=== PATIENT | male | born 1945 | race Caucasian/White ===

== ENCOUNTER → 2019-09-10 10:30 | Outpatient (CLI) | payer MEDICARE, SELFPAY ==
[2019-09-11 14:15] LABS: Covid-19 Nasal PCR Sendout Lex NOT DETECTED
== END ==
PROVIDERS: Visit Provider Internal Medicine Gastroenterology
DX: Z03.818 Encounter for observation for suspected exposure to other biological agents ruled out (principal)
CPT/HCPCS: U0004

== ENCOUNTER 2019-09-12 10:59 | Day surgery (SDC) | payer MEDICARE, SELFPAY ==
--- NOTE | 2019-09-09 10:07 | SUR.PREOP ---
09/09/2019 @ 1005--PHONE CALL MADE TO PATIENT. PATIENT UNDERSTANDS THAT LAB WORK AND COVID TESTING NEEDS TO BE COMPLETED @ 1000 ON 09/10/2019. PATIENT UNDERSTANDS IF LAB WORK AND COVID-19 TESTS ARE NOT COMPLETED BY 12PM ON THAT DATE, THE SURGERY SCHEDULED WILL BE CANCELLED AND RESCHEDULED FOR ANOTHER TIME.
[2019-09-09 13:04] VITALS: BMI 21.7
[2019-09-12 11:26] VITALS: BP 160/81; PULSE 82; RESP 18; TEMP 36.6; O2SAT 98
--- NOTE | 2019-09-12 13:03 | FL_ITS ---
PROCEDURE: FL ERCP CLINICAL INDICATION: cbd stone Biliary colic COMPARISON: No exams were available for comparison FINDINGS: Fluoroscopy time: 2 minutes and 27 seconds. Select images are submitted from the ERCP showing the scope in place. One image shows contrast into the common bile duct with several small filling defects the largest at approximately 8 mm consistent with common duct stones. IMPRESSION: Choledocholithiasis Dictated by: Daniel Grlulon MD 09/15/2019 11:56 Electronically signed by Daniel Grullon MD in [place] 09/15/2019 11:56
[2019-09-12 13:04] VITALS: O2SAT 97
--- NOTE | 2019-09-12 13:28 | HMH.PROC ---
[facility] Procedure Note Procedure Note:: ERCP procedure Report: Endoscopic retrograde cholangiopancreatography with balloon extraction Endoscopist: Larry Warner II, MD Referring Physician: Wade Jacques MD Date of Procedure: September 12, 2019 Equipment: Olympus 180 side viewing endoscope duodenoscope Sedation: MAC sedation Indication: Mr. Jacques is a 73-year-old gentleman with recurrent choledocholithiasis. In the past, he has had bouts of cholangitis with partial biliary obstruction. We had been doing ERCP with clearance and decompression of the biliary system every 4 months. His last ERCP was March 12, 2019. He reports no abdominal pain, jaundice, fever or chills. He reports no dark in urine or acholic stools. I believe this is his 17th or 18th ERCP and he has recurrent CBD stones each time. Procedure: Prior to the procedure, a history and physical exam was performed, and patient's medications and allergies were reviewed. The risks, benefits and alternatives of the sedation and procedure were discussed with the patient. All questions were answered and informed consent was obtained. The patient was brought to the fluoroscopic radiology room. Patient identification and proposed procedure were verified by the physician and the nurse. The patient was placed in a swimmer's position between left lateral decubitus and prone position and the scope was passed under direct vision. Throughout the procedure, the patient's blood pressure, pulse, and oxygen saturations were monitored continuously. The ERCP was accomplished without difficulty. The patient tolerated the procedure well. Findings: The side-viewing duodenal scope was passed directly into the upper esophagus and advanced to the second portion of the duodenum. There was a widely patent sphincterotomy and the ampulla was generous but normal in appearance and unchanged. The CBD and biliary system were selectively cannulated with a guidewire. A cholangiogram was performed and there was evidence of new filling defects consistent with biliary stones. Next, the 9 to 12 mm balloon was placed into the biliary system. The CBD diameter was approximately maximally 14 mm. 3 balloon sweeps yielded 3 stones and sludge. After complete clearance, a repeat cholangiogram did show a single solid filling defect in the intrahepatic biliary system. This was within a branch of the right intrahepatic biliary system and the guidewire was placed above the stone. The balloon was then navigated above the filling defect and swept through the biliary system with the passage of a 10 x 12 mm stone (yellow gallstone). After this sweep there was complete clearance and resolution with decompression of the biliary system. The procedure was ended at that point. Impression: 1. Recurrent choledocholithiasis status post biliary clearance Plan: I will plan repeat ERCP with clearance of the biliary system again in 4 to 6 months. I will discuss the findings with patient and family.
[2019-09-12 13:33] VITALS: BP 118/71; PULSE 70; RESP 18; TEMP 36.1; O2SAT 94
[2019-09-12 13:43] VITALS: BP 135/70; PULSE 65; RESP 18; TEMP 36.1; O2SAT 94
[2019-09-12 13:53] VITALS: BP 141/75; PULSE 65; RESP 18; TEMP 36.1; O2SAT 95
[2019-09-12 14:08] VITALS: BP 141/76; PULSE 61; RESP 18; TEMP 36.1; O2SAT 95
== END 2019-09-12 14:08 | disposition home or self-care (01) ==
LOC: OUTP 11:05
PROVIDERS: PCP Internal Medicine; Visit Provider Internal Medicine Gastroenterology
DX: K80.51 Calculus of bile duct without cholangitis or cholecystitis with obstruction (principal); I10 Essential (primary) hypertension; E78.5 Hyperlipidemia, unspecified; Z79.899 Other long term (current) drug therapy
CPT/HCPCS: 43264; 74330; Q9967

== ENCOUNTER → 2020-03-06 10:36 | Outpatient (CLI) | payer MEDICARE, SELFPAY ==
[2020-03-06 12:54] LABS: Coronavirus 19 IgG Antibody Negative (Negative); Coronavirus 19 IgM Antibody Negative (Negative)
== END ==
PROVIDERS: Visit Provider Internal Medicine Gastroenterology
DX: Z01.818 Encounter for other preprocedural examination (principal)
CPT/HCPCS: 36415; 86328

== ENCOUNTER 2020-03-08 13:34 | Day surgery (SDC) | payer MEDICARE, SELFPAY ==
[2020-03-02 13:42] VITALS: BMI 22.4
[2020-03-08] VITALS (9 sets, daily range): BP systolic 108–137; BP diastolic 61–90; PULSE 61–80; RESP 18; TEMP 36.4–37; O2SAT 94–98
--- NOTE | 2020-03-08 14:39 | FL_ITS ---
PROCEDURE: FL ERCP CLINICAL INDICATION: ercp Choledocholithiasis COMPARISON: No exams were available for comparison FINDINGS: Select images are submitted showing prior cholecystectomy. Dilated common bile duct at approximately 12 mm with a common duct stone present measuring at least 10 mm. IMPRESSION: Choledocholithiasis with dilated common bile duct Dictated by: Daniel Grullon MD 03/11/2020 18:23 Daniel Grullon MD in [place] 03/11/2020 18:23
--- NOTE | 2020-03-08 15:25 | HMH.PROC ---
[facility] Procedure Note Procedure Note:: ERCP procedure Report: Endoscopic retrograde cholangiopancreatography with TTS balloon dilation (sphincteroplasty) and balloon extraction of gallstones (choledocholithiasis) Endoscopist: Larry Warner II, MD Referring Physician: Wade Jacques MD Date of Procedure: March 08, 2020 Equipment: Olympus 180 side viewing endoscope duodenoscope Sedation: MAC sedation Indication: Mr. Jacques is a 74-year-old gentleman with recurrent choledocholithiasis/common bile duct stones. In the past he has had intermittent bouts of biliary cholangitis and partial biliary obstruction. The patient has had multiple ERCPs (nearly 20) with interval development of new biliary stones. His last ERCP with biliary clearance was 09/12/2019. He has remained asymptomatic with no right upper quadrant abdominal pain, nausea or vomiting. Procedure: Prior to the procedure, a history and physical exam was performed, and patient's medications and allergies were reviewed. The risks, benefits and alternatives of the sedation and procedure were discussed with the patient. All questions were answered and informed consent was obtained. The patient was brought to the fluoroscopic radiology room. Patient identification and proposed procedure were verified by the physician and the nurse. The patient was placed in a swimmer's position between left lateral decubitus and prone position and the scope was passed under direct vision. Throughout the procedure, the patient's blood pressure, pulse, and oxygen saturations were monitored continuously. The ERCP was accomplished without difficulty. The patient tolerated the procedure well. Findings: The side-viewing duodenal scope was passed directly into the upper esophagus and advanced to the third portion of the duodenum. There was evidence of very short segment Ashton's esophagus with small hiatal hernia. There was mild reactive gastropathy of the antrum of the stomach. The duodenum was well visualized to the second portion and there was a third portion duodenal diverticulum. The ampulla was widely patent and the common bile duct was selectively cannulated. The cholangiogram did show a 10 to 11 mm common bile duct with filling defects and sludge and stony debris within the biliary system. A biliary dilating balloon/TTS hydrostatic balloon was utilized to dilate the ampulla (sphincteroplasty) to 10 mm. Next, the 10 to 12 mm sweeping balloon was utilized to sweep the biliary system multiple times with the extraction of some soft, semisolid and solid yellow stony debris/choledocholithiasis. After complete clearance of the biliary system the procedure was ended. Impression: 1. Recurrent choledocholithiasis status post sphincteroplasty and balloon clearance Plan: I will plan to repeat ERCP again in 6 months due to his ongoing recurrence of biliary stones (lithogenic bile).
--- NOTE | 2020-03-08 16:42 | P.PN_ITS ---
[facility] Anesthesia Checklist - Structural Data Admitted From: Home Planned Operative Procedure/s: ercp Consent for Planned Operative Procedure(s) Verified: Yes - Airway Assessment C-Spine Mobility Assessed: Yes TMJ Mobility Assessed: Yes Dentition: Good Dentition - Neurological Assessment Level of Consciousness: Awake, Alert, Appropriate - Anesthesia Plan Anesthesia Risk discussed: Yes Anesthesia Plan: Verified ASA Class: III Anesthesia Type: MAC [facility] History I have reviewed the patient's past medical history: Yes Medical History: Reports:: Cancer (prostate), Hyperlipidemia, Hypertension, Peripheral Artery Disease Denies:: Diabetes Mellitus Type 1, Diabetes Mellitus Type 2, Internal Pacemaker, MRSA, Seizures *Have you ever received a pneumonia vaccine?: No *Have you received a flu vaccine this season?: No Anesthesia experience/problems:: none Laterality Cases: Bilateral: Tonsillectomy Other Surgeries: Yes: Coronary Stent. No: Pacemaker Amputation: No Fractures: No - *Social History Last grade of school completed: Some college Smoking Status: Current every day smoker Tobacco Type: cigarettes # Packs/Day (cigarettes): 1 Alcohol Intake: current Alcohol Intake Frequency:: a few times a month Substance Use Type: denies use *Occupational Status:: retired Housing: house Household Members: spouse *Travel in the last 8 weeks: None Family Hx:: Cancer
== END 2020-03-08 16:30 | disposition home or self-care (01) ==
LOC: OUTP 13:37
PROVIDERS: PCP Internal Medicine; Visit Provider Internal Medicine Gastroenterology
PROC: (CPT 43264; principal; 2020-03-08 14:30)
DX: K80.50 Calculus of bile duct without cholangitis or cholecystitis without obstruction (principal); Z98.890 Other specified postprocedural states
CPT/HCPCS: 43264; 74330; 76000; C1726; Q9967

== ENCOUNTER → 2020-10-06 13:45 | Outpatient (CLI) | payer MEDICARE, SELFPAY | PROVIDERS: Visit Provider Internal Medicine Gastroenterology | DX: Z01.812 Encounter for preprocedural laboratory examination (principal); Z20.822 Contact with and (suspected) exposure to COVID-19 | CPT/HCPCS: U0003 ==

== ENCOUNTER 2020-10-08 10:53 | Day surgery (SDC) | payer MEDICARE, SELFPAY ==
[2020-09-30 13:10] VITALS: BMI 20.9
[2020-10-08 11:53] VITALS: BP 139/82; PULSE 77; RESP 18; TEMP 36.8; O2SAT 97
--- NOTE | 2020-10-08 13:00 | FL_ITS ---
PROCEDURE: FL ERCP CLINICAL INDICATION: Right Upper Quadrant Pain COMPARISON: No exams were available for comparison FINDINGS: Fluoroscopy time: 2 minutes and 7 seconds Single image submitted with contrast injection shows endoscope in place with cannulation of the common bile duct. The common bile duct is dilated at approximately 12 mm with multiple stones. IMPRESSION: Choledocholithiasis Dictated by: Daniel Grullon MD 10/08/2020 20:06 Daniel Grullon MD in [place] 10/08/2020 20:06
--- NOTE | 2020-10-08 13:19 | HMH.PROC ---
[facility] Procedure Note Procedure Note:: ERCP procedure Report: Endoscopic retrograde cholangiopancreatography with balloon extraction sweep (removal of biliary stones) and cold biopsies Endoscopist: Larry Warner II, MD Referring Physician: Wade Jacques MD ([facility]) Date of Procedure: October 08, 2020 Equipment: Olympus 180 side viewing endoscope duodenoscope Sedation: MAC sedation Indication: Mr. Jacques is a 74-year-old gentleman with recurrent choledocholithiasis/CBD stones. He has had intermittent biliary cholangitis and partial biliary obstruction. He does have surveillance ERCP every 4 to 6 months. His last ERCP was 6 months ago (February 2020) and he did have recurrent sludge and soft biliary stones that were removed. The patient reports no abdominal complaints. Procedure: Prior to the procedure, a history and physical exam was performed, and patient's medications and allergies were reviewed. The risks, benefits and alternatives of the sedation and procedure were discussed with the patient. All questions were answered and informed consent was obtained. The patient was brought to the fluoroscopic radiology room. Patient identification and proposed procedure were verified by the physician and the nurse. The patient was placed in a swimmer's position between left lateral decubitus and prone position and the scope was passed under direct vision. Throughout the procedure, the patient's blood pressure, pulse, and oxygen saturations were monitored continuously. The ERCP was accomplished without difficulty. The patient tolerated the procedure well. Findings: The side-viewing duodenal scope was passed directly into the upper esophagus and advanced to the second portion of the duodenum. There was very short segment Ashton's esophagus and biopsies were obtained this time directed and sent for pathology. There was a small hiatal hernia. There was mild reactive gastropathy. The scope was advanced to the second portion of the duodenum and there was a duodenal diverticulum in the third portion. The ampulla was well visualized and the common bile duct was selectively cannulated. The cholangiogram did show several filling defects within common bile duct that was approximately 10 to 11 mm. The major ampullary orifice was widely patent. A 10 to 12 mm sweeping balloon was placed at the hilum and swept through the biliary system and this did yield yellowish-brown sludge and stone with a moderate amount of debris. Because each sweep produces a pressure gradient to get more intrahepatic stones to move distally into the common bile duct, subsequent sweeps yielded more and more brownish-yellow stones and debris. Approximately 8 or 9 balloon sweeps were performed until minimal further debris was yielded and removed. The procedure was ended at that point. No sphincterotomy or sphincteroplasty was performed. The pancreatic duct was not cannulated intentionally. Impression: 1. Recurrent choledocholithiasis status post biliary clearance Plan: I will plan to repeat ERCP again in 6 months because of his recurrent CBD stones and prior complications (i.e. cholangitis). I will follow-up the biopsies.
[2020-10-08 13:47] VITALS: BP 129/73; PULSE 76; RESP 18; O2SAT 95
[2020-10-08 13:57] VITALS: BP 132/77; PULSE 70; RESP 18; O2SAT 96
--- NOTE | 2020-10-08 13:59 | P.PN_ITS ---
[facility] Anesthesia Checklist - Structural Data Admitted From: Home Planned Operative Procedure/s: ercp Consent for Planned Operative Procedure(s) Verified: Yes - Anesthesia Plan Anesthesia Risk discussed: Yes Anesthesia Plan: Verified ASA Class: III Anesthesia Type: MAC [facility] History I have reviewed the patient's past medical history: Yes Medical History: Reports:: Cancer (prostate), Hyperlipidemia, Hypertension, Peripheral Artery Disease Denies:: Diabetes Mellitus Type 1, Diabetes Mellitus Type 2, Internal Pacemaker, MRSA, Seizures *Have you ever received a pneumonia vaccine?: No *Have you received a flu vaccine this season?: No Anesthesia experience/problems:: none Laterality Cases: Bilateral: Tonsillectomy Other Surgeries: Yes: Coronary Stent. No: Pacemaker Amputation: No Fractures: No - *Social History Last grade of school completed: Some college Smoking Status: Current every day smoker Tobacco Type: cigarettes # Packs/Day (cigarettes): 1 Alcohol Intake: current Alcohol Intake Frequency:: a few times a week Substance Use Type: denies use *Occupational Status:: retired Housing: house Household Members: spouse *Travel in the last 8 weeks: None Family Hx:: Cancer
[2020-10-08 14:18] VITALS: O2SAT 98
== END 2020-10-08 14:07 | disposition home or self-care (01) ==
LOC: OUTP 10:54
PROVIDERS: PCP Internal Medicine; Visit Provider Internal Medicine Gastroenterology
DX: K80.70 Calculus of gallbladder and bile duct without cholecystitis without obstruction; I10 Essential (primary) hypertension; E78.5 Hyperlipidemia, unspecified; I73.9 Peripheral vascular disease, unspecified; Z85.46 Personal history of malignant neoplasm of prostate; Z80.9 Family history of malignant neoplasm, unspecified; Z79.82 Long term (current) use of aspirin; Z79.899 Other long term (current) drug therapy
CPT/HCPCS: 43261; 43264; 74330; 88305; Q9967